=== PATIENT | female | born 1935 | race Caucasian/White ===

== ENCOUNTER 2021-07-10 11:46 | Emergency (ER) | payer MEDICARE, OTHER ==
[2021-07-10 12:47] LABS: BILIRUBIN NEGATIVE (NEGATIVE); BLOOD NEGATIVE Ery/uL (NEGATIVE); CLARITY CLEAR (CLEAR); COLOR YELLOW (YELLOW); GLUCOSE (U) NORMAL (NORMAL); LEUKOCYTES TRACE Leu/uL (NEGATIVE); NITRITE POSITIVE (NEGATIVE); PROTEIN NEGATIVE (NEGATIVE); SPECIFIC GRAVITY 1.015 (1.001-1.030); UROBILINOGEN 0.2 mg/dL (0.2-1.0); pH 5.5 (5.0-9.0)
[2021-07-10 12:55] LABS: BACTERIA 4+; MUCOUS TRACE
[2021-07-10 14:05] LABS: BILIRUBIN NEGATIVE (NEGATIVE); BLOOD NEGATIVE Ery/uL (NEGATIVE); CLARITY CLEAR (CLEAR); COLOR YELLOW (YELLOW); GLUCOSE (U) NORMAL (NORMAL); LEUKOCYTES TRACE Leu/uL (NEGATIVE); NITRITE POSITIVE (NEGATIVE); PROTEIN NEGATIVE (NEGATIVE); SPECIFIC GRAVITY 1.015 (1.001-1.030); UROBILINOGEN 0.2 mg/dL (0.2-1.0); pH 5.5 (5.0-9.0)
[2021-07-10 14:23] LABS: URINARY WBC RARE
[2021-07-10 14:24] LABS: BACTERIA 4+; TRANSITIONAL EPITHELIAL CELLS RARE
[2021-07-10 14:36] LABS: BASOPHIL 0.5 % (0-2); HCT 43.8 % (37.0-47.0); HGB 13.9 g/dl (12.5-16.0); LYMPHOCYTE 14.7 % (15-48); MCH 29.1 pg (25.0-31.0); MCHC 31.7 g/dL (32.0-36.0); MCV 91.8 fL (78.0-100.0); MPV 10.3 fL (6.0-9.5); NEUTROPHIL 72.2 % (41-80); NRBC 0; PLT 219 K/uL (150-400); RBC 4.77 M/uL (4.20-5.40); WBC 6.5 K/uL (4.0-10.5)
[2021-07-10 14:51] LABS: ALBUMIN 3.3 g/dL (3.4-5.0); BILIRUBIN - TOTAL 0.5 mg/dL (0.2-1.0); BUN/CREAT RATIO (CALC) 17.1 RATIO; CREATININE 1.17 mg/dL (0.51-0.95); GLOBULIN (CALCULATION) 3.9 g/dL; POTASSIUM 4.1 mmol/L (3.5-5.1); TOTAL PROTEIN 7.2 g/dL (6.4-8.2)
[2021-07-10] MEDS ORDERED: MACROBID100 MG PO (16:08)
== END 2021-07-10 16:57 | disposition home or self-care (01) ==
LOC: FER 11:46
PROVIDERS: Emergency Medicine; Nurse Practitioner Family
DX: N39.0 Urinary tract infection, site not specified (principal); R19.7 Diarrhea, unspecified; J44.9 Chronic obstructive pulmonary disease, unspecified; I48.91 Unspecified atrial fibrillation
CPT/HCPCS: 36415; 80053; 81001; 85025; 87076; 87088; 87186; J7030